=== PATIENT | male | born 1960 | race Caucasian/White ===

== ENCOUNTER → 2021-08-19 | Outpatient (CLI) | payer BC ==
--- NOTE | 2021-08-20 04:34 | XR ---
EXAMINATION TYPE: XR shoulder complete 3 views RT, XR knee limited 2 views LT DATE OF EXAM: 08/19/2021 Comparison: None Clinical History: 61-year-old male [id number] LT KNEE PAIN, RT SHOULDER PAIN Findings: Right shoulder: Some sclerosis and bony irregularity of the greater tuberosity. AC joint appears intact. No acute fra cture, subluxation, dislocation seen. Left knee: There appears to be a moderate to large joint effusion. Bony spurring anteriorly just below the tibia l tuberosity possible sequela of old injury. Otherwise, no acute fracture, subluxation, or dislocatio n seen. Impression: 1. Right shoulder: Bony changes of the greater tuberosity suggests chronic rotator cuff tendinopathy. If symptoms persist, consider MRI to further assess the rotator cuff. Otherwise, no acute osseous ab normality seen. 2. Left knee: Moderate to large joint effusion. MRI knee to assess for potential internal derangement . The [id number] can be increased slightly to include the proximalmost tibial shaft to assess an a margy of bony spurring and cortical thickening, probably sequela of old injury.
== END | disposition home or self-care (01) ==
LOC: RADXRYALE 15:56
PROVIDERS: ATTEND Internal Medicine
DX: M25.462 Effusion, left knee (principal); M25.511 Pain in right shoulder